=== PATIENT | male | born 1980 | race Caucasian/White ===

== ENCOUNTER → 2018-08-31 | Outpatient (CLI) | payer OTHER, MEDICAID | LOC: FCPNEURO 21:30 | PROVIDERS: ATTEND Psychiatry & Neurology Sleep Medicine | DX: G47.34 Idiopathic sleep related nonobstructive alveolar hypoventilation (principal) ==

== ENCOUNTER 2018-12-22 21:43 | Emergency (ER) | payer MEDICAID, OTHER ==
--- NOTE | 2018-12-22 22:16 | EDPHY ---
H & P Stated Complaint: too sleepy at the sleep center Time Seen by Provider: 12/22/18 22:15 HPI/ROS: HPI CHIEF COMPLAINT: Excessively sleepy. "From Sleep Study" HISTORY OF PRESENT ILLNESS: This is a 38-year-old male who presents emergency room from the sleep center as he was due to have a sleep study tonight however was excessively sleepy there with a low O2 sat. It is reported the patient had multiple shots of liquor and multiple beers as well as his nighttime sleep medication which include Zyprexa and trazodone. He was too sleepy for his sleep study. It was noted that he had a room air saturation of 75% over there and he was referred to the emergency room. He arrives to the emergency room is very lethargic he is unable to open his eyes. He is really unable to follow any commands however he does respond to verbal stimuli but is extremely lethargic. Past Medical History: Alcoholism, daily alcohol use, traumatic brain injury, bipolar disorder, obstructive sleep apnea, nighttime insomnia Past Surgical History: No recent surgery Social History: Drinks daily large amount per the . Family History: Noncontributory ROS REVIEW OF SYSTEMS: 10 Systems were reviewed and negative with the exception of the elements mentioned in the history of present illness. Exam Constitutional intoxicated, smells of alcohol, lethargic triage nursing summary reviewed, vital signs reviewed Eyes normal conjunctivae and sclera, EOMI, PERRLA. HENT normal inspection, atraumatic, moist mucus membranes, no epistaxis, neck supple/ no meningismus, no raccoon eyes. Respiratory clear to auscultation bilaterally, normal breath sounds, no respiratory distress, no wheezing. Cardiovascular rate normal, regular rhythm, no murmur, no edema, distal pulses normal. Gastrointestinal soft, non-tender, no rebound, no guarding, normal bowel sounds, no distension, no pulsatile mass. Genitourinary no CVA tenderness. Musculoskeletal no midline vertebral tenderness, full range of motion, no calf swelling, no tenderness of extremities, no meningismus, good pulses, neurovascularly intact. Skin pink, warm, & dry, no rash, skin atraumatic. Neurologic lethargic. Slurs his speech. Smells of alcohol. Psychiatric normal mood/affect. Heme/Lymph/Immune no lymphadenopathy. Differential Diagnosis: Includes but is not limited to in a particular order acute alcohol intoxication, lethargy due to medications and alcohol, hypoxia, drug overdose Medical Decision Making: Plan for this patient IV establishment with cardiac sonographer, pulse ox, supplemental oxygen, IV fluid bolus, drug screen, alcohol level, monitor closely, monitor for worsening of condition. Re-evaluation: ED x-ray chest one view poor inspiratory effort no focal pneumonia. Serum alcohol level 201. 0133: Patient had a purple Nalgene bottle at bedside and the patient was witnessed drinking this. When we realized he was drinking this we evaluated this substance in allergy bottle and it smells like liquor Rum. The patient drinking liquor in the emergency room. The bottle is taken away. 0606: Patient is now completely sober here in the emergency room stable gait. Ambulates well answers my questions appropriately. Requesting discharge. His serum alcohol level was 201 when he arrived here. Additionally took his sleep medications. He was very sleepy when he arrived here 8 and 0.5 hr ago. He is now sober. Also was noted that he was found to be drinking alcohol in the emergency room out of his water bottle that was filled with Rum. I counseled the patient on alcohol cessation I also counseled that he cannot drink alcohol while in the emergency room. Additionally he was due for sleep study and went to the sleep study highly intoxicated with alcohol and I highly recommend he does not do this. Source: Patient - Personal History Current Tetanus/Diphtheria Vaccine: Yes Current Tetanus Diphtheria and Acellular Pertussis (TDAP): Yes - Medical/Surgical History Hx Asthma: No Hx Chronic Respiratory Disease: No Hx Diabetes: No Hx Cardiac Disease: No Hx Renal Disease: No Hx Cirrhosis: No Hx Alcoholism: Yes Hx HIV/AIDS: No Hx Splenectomy or Spleen Trauma: No Other PMH: HX TBI with baseline slurred speech, HTN - Social History Smoking Status: Current every day smoker Constitutional: Initial Vital Signs Temperature (C) 36.3 C 12/22/18 21:47 Heart Rate 61 12/22/18 21:47 Respiratory Rate 16 12/22/18 21:47 Blood Pressure 110/62 12/22/18 21:47 O2 Sat (%) 90 L 12/22/18 21:47 O2 Delivery Mode Nasal Cannula O2 (L/minute) 2 Allergies/Adverse Reactions: penicillin G Allergy (Verified 12/22/18 22:12) Home Medications: Medication Instructions Recorded Divalproex [Depakote] 125 mg PO 12/22/18 OLANZapine [Zyprexa] 10 mg PO 12/22/18 traZODone [traZODone 150MG (*)] 150 mg PO HS 12/22/18 Medical Decision Making - Diagnostics Imaging Results: Imaging Impressions Chest X-Ray 12/22/18 22:24 Impression: Bronchitis and minimal bibasilar atelectasis. - Data Points Laboratory Results: Laboratory Results 12/22/18 21:50 12/22/18 21:50 12/22/18 12/22/18 12/22/18 22:40 21:50 21:50 WBC 7.55 10^3/uL 10^3/uL (3.80-9.50) RBC 5.72 10^6/uL 10^6/uL (4.40-6.38) Hgb 16.9 g/dL g/dL (13.7-17.5) Hct 49.8 % % (40.0-51.0) MCV 87.1 fL fL (81.5-99.8) MCH 29.5 pg pg (27.9-34.1) MCHC 33.9 g/dL g/dL (32.4-36.7) RDW 14.0 % % (11.5-15.2) Plt Count 336 10^3/uL 10^3/uL (150-400) MPV 9.9 fL fL (8.7-11.7) Neut % (Auto) 36.8 % L % (39.3-74.2) Lymph % (Auto) 54.7 % H % (15.0-45.0) [place] % (Auto) 5.8 % % (4.5-13.0) Eos % (Auto) 1.6 % % (0.6-7.6) Baso % (Auto) 0.8 % % (0.3-1.7) Nucleat RBC Rel Count 0.0 % % (0.0-0.2) Absolute Neuts (auto) 2.78 10^3/uL 10^3/uL (1.70-6.50) Absolute Lymphs (auto) 4.13 10^3/uL H 10^3/uL (1.00-3.00) Absolute Monos (auto) 0.44 10^3/uL 10^3/uL (0.30-0.80) Absolute Eos (auto) 0.12 10^3/uL 10^3/uL (0.03-0.40) Absolute Basos (auto) 0.06 10^3/uL 10^3/uL (0.02-0.10) Absolute Nucleated RBC 0.00 10^3/uL 10^3/uL (0-0.01) Immature Gran % 0.3 % % (0.0-1.1) Immature Gran # 0.02 10^3/uL 10^3/uL (0.00-0.10) Puncture Site RIGHT RADIAL Patient Temperature 36.0 DEGREES DEGREES pCO2 39 mmHg H mmHg (34-38) pO2 86 mmHg H mmHg (65-75) Total CO2 23 mEq/L mEq/L (23-27) ABG pH 7.36 (7.35-7.45) ABG HCO3 22 mEq/L mEq/L (22-26) ABG O2 Saturation 96 % H % (92-95) ABG Base Excess -3.5 mEq/L L mEq/L (-2.5-2.5) Total O2 Concentration 2.0 LITERS LITERS Sodium 143 mEq/L mEq/L (135-145) Potassium 3.8 mEq/L mEq/L (3.5-5.2) Chloride 107 mEq/L mEq/L (97-110) Carbon Dioxide 21 mEq/l L mEq/l (22-31) Anion Gap 15 mEq/L H mEq/L (6-14) BUN 5 mg/dL L mg/dL (7-23) Creatinine 0.9 mg/dL mg/dL (0.7-1.3) Estimated GFR > 60 Glucose 131 mg/dL H mg/dL (70-100) Calcium 9.0 mg/dL mg/dL (8.5-10.4) Salicylates < 1.0 mg/dL L mg/dL (2.0-20.0) Acetaminophen < 10 mcg/mL L mcg/mL (10-30) Valproic Acid < 10.0 mcg/mL L mcg/mL (50.0-150.0) Ethyl Alcohol 201 mg/dL H mg/dL (0-10) Medications Given: Discontinued Medications Sodium Chloride (Ns) 1,000 mls @ 0 mls/hr IV ONCE ONE PRN Reason: Wide Open Stop: 12/22/18 22:21 Last Admin: 12/22/18 22:32 Dose: 1,000 mls Sodium Chloride (Ns) 1,000 mls @ 0 mls/hr IV EDNOW ONE; Wide Open PRN Reason: Protocol Stop: 12/22/18 22:22 Last Admin: 12/22/18 22:33 Dose: 1,000 mls Departure - Departure Disposition: Home, Routine, Self-Care Clinical Impression: Alcohol intoxication Condition: Good Instructions: Alcohol Intoxication (ED) Additional Instructions: 1. Refrain from drinking alcohol. Referrals: Sonam Tovar MD [Primary Care Provider] - As per Instructions
[2018-12-22] MEDS ORDERED: NS 1,000 ML IV ONE (22:21)
[2018-12-22] MEDS: NS 1,000 ML IV ONE (22:32)
[2018-12-22 22:38] LABS: PLATELET COUNT 336 10^3/uL (150-400)
[2018-12-23 07:40] VITALS: BP 145/79
== END 2018-12-23 07:54 | disposition home or self-care (01) ==
LOC: EDUNIT#
DX: F10.920 Alcohol use, unspecified with intoxication, uncomplicated (principal); J40 Bronchitis, not specified as acute or chronic; E86.9 Volume depletion, unspecified
CPT/HCPCS: G0480

== ENCOUNTER → 2019-04-19 | Outpatient (CLI) | payer OTHER, MEDICAID | LOC: FCPNEURO 20:00 ==